=== PATIENT | male | born 1955 | race Caucasian/White ===

== ENCOUNTER 2020-08-13 09:38 | Outpatient (REF) | payer MEDICAID, OTHER, SELFPAY ==
--- NOTE | ~2020-08-13 | US_ITS ---
EXAMINATION: US SCROTUM CLINICAL INFORMATION: Left testicular pain. COMPARISON: Ultrasound scrotum 05/19/2017. TECHNIQUE: A sonogram of the scrotum was performed assessing chino-scale appearance and color Doppler flow. Spectral Doppler analysis of the arterial and venous flow were performed in the testes bilaterally. FINDINGS: RIGHT: Right testicle measures 3.4 x 1.5 x 2.9 cm, volume 7.3 mL. No focal testicular parenchymal lesions are visualized. Spectral Doppler analysis of the arterial and venous flow is normal in the right testis. Right epididymal head is normal in size. No right hydrocele is seen. There is a small right varicocele. Right epididymal Doppler flow is normal. LEFT: Left testicle measures 4 x 1.3 x 2.2 cm, volume 6.9 mL. Punctate echogenic calcifications are visualized. Spectral Doppler analysis of the arterial and venous flow is normal in the left testis. Left epididymal head is normal in size. There are 2 epididymal cysts measuring 0.44 x 0.3 x 0.4 cm and 0.40 x 0.35 x 0.31 cm. There is a small thrombosed left varicocele. No vascular flow detected. No left hydrocele is seen. Left epididymal Doppler flow is normal. US/US scrotum IMPRESSION: Left epididymal two cysts. Bilateral varicoceles. The left varicocele is thrombosed. Apparently, the patient had left varicocele surgery 30 years ago. Normal ultrasound of testes with normal Doppler exam.
== END 2020-08-13 09:39 | disposition home or self-care (01) ==
LOC: HO.HMGCX 09:38
PROVIDERS: PCP General Practice; Visit Provider General Practice
DX: N50.812 Left testicular pain (principal)
CPT/HCPCS: 76870

== ENCOUNTER 2021-01-08 08:56 | Outpatient (REF) | payer MEDICAID, OTHER, SELFPAY ==
--- NOTE | ~2021-01-08 | CT_ITS ---
EXAMINATION: CT HEAD WITHOUT CONTRAST CLINICAL INFORMATION: Amnesia COMPARISON: None TECHNIQUE: Contiguous axial imaging was performed from the skull base to vertex without intravenous administration of contrast. This CT examination was performed using dose optimization techniques as appropriate, variously including the following: *Automated exposure control *Adjustment of mA and/or kV according to patient size (this includes techniques or standardized protocols for targeted exams where dose is matched to indication/reason for exam; i.e. extremities or head) *Use of iterative reconstruction technique DLP: 796 mGy-cm FINDINGS: There is no evidence of acute intracranial hemorrhage or territorial infarction. No abnormal mass effect or midline shift is seen. Neumann to white matter differentiation is well preserved. No extra-axial fluid collections are identified. The ventricles are normal in size. There is no abnormal attenuation within the brain parenchyma. The osseous structures and soft tissues are normal. There is air-fluid level in the right maxillary sinus. Rest of the paranasal sinuses and mastoid air cells are well aerated. CT/CT head/brain wo con IMPRESSION: No acute intracranial process seen.
== END 2021-01-08 08:57 | disposition home or self-care (01) ==
LOC: HO.CT 08:56
PROVIDERS: Visit Provider General Practice
DX: R41.3 Other amnesia (principal)
CPT/HCPCS: 70450